=== PATIENT | male | born 1960 | race Caucasian/White ===

== ENCOUNTER 2017-02-13 06:54 | Inpatient (IN) | payer BC ==
[2017-02-10 17:28] VITALS: BMI 29.7
[~2017-02-13] VITALS: Ht 188 cm; Wt 106.6 kg
[2017-02-13] VITALS (29 sets, daily range): BP systolic 102–128; BP diastolic 47–90; PULSE 54–80; RESP 11–24; Ht 188 cm; Wt 106.6 kg
[~2017-02-13 06:54] MED LIST: BUPIVACAINE 0.5% (SDV) 30 ML, morphine SULFATE (PF) 8 MG, EPINEPHrine 0.3 MG, KETOROLAC... IRR SCH; CEFAZOLIN 2 GM/50 ML (PMX) 50 ML IVPB ONE; DEXAMETHASONE 1 MG TAB PO ONE; GABAPENTIN 300 MG CAP PO ONE; SOD CHLORIDE 0.9% 100 ML, TRANEXAMIC ACID 3,000 MG IRR ONE; TRANEXAMIC ACID 1,000 MG in SOD CHLORIDE 0.9% 100 ML IVPB ONE; traMADol 50 MG TAB PO ONE
--- NOTE | 2017-02-13 06:58 | HPN ---
Date/Time of Note Date/Time of Note DATE: 02/13/17 TIME: 06:57 Interval H&P Admission Note Pt. seen H&P reviewed: No system changes SARA MCGRATH MD Feb 13, 2017 06:58
[2017-02-13] MEDS ORDERED: FENTAnyl 50 MCG/ML VIAL ONE (08:01)
[2017-02-13] MEDS ORDERED: CEFAZOLIN 1 GM INJ ONE (08:01)
[2017-02-13] MEDS ORDERED: MIDAZOLAM 1 MG/ML 2 ML INJ ONE (08:01)
[2017-02-13] MEDS ORDERED: NEOSTIGMINE 3 MG/3 ML SYRINGE ONE (08:01)
[2017-02-13] MEDS ORDERED: ROCURONIUM 50 MG INJ ONE (08:01)
[2017-02-13] MEDS ORDERED: GLYCOPYRROLATE 0.4 MG INJ ONE (08:01)
[2017-02-13] MEDS ORDERED: DEXAMETHASONE 4 MG/ML 1 ML INJ ONE (08:02)
[2017-02-13] MEDS ORDERED: ETOMIDATE 20 MG INJ ONE (08:02)
[2017-02-13] MEDS ORDERED: PROPOFOL 100 ML ONE (08:02)
[2017-02-13] MEDS ORDERED: morphine SULFATE/PF (10 MG/10 ML) INJ ONE (08:02)
[2017-02-13] MEDS ORDERED: ONDANSETRON 4 MG INJ ONE (08:02)
[2017-02-13] MEDS ORDERED: POLYMYXIN/BACITRACIN 1L IRRIG ONE (09:14)
[2017-02-13] MEDS ORDERED: CA CHLORIDE 10% 10 ML SYRINGE ONE (09:54)
[2017-02-13] MEDS ORDERED: THROMBIN 5000 UNIT VIAL ONE (09:54)
[2017-02-13] MEDS ORDERED: SUGAMMADEX SODIUM 200 MG/2 ML VIAL IV ONE (11:43)
--- NOTE | 2017-02-13 11:54 | OPR ---
Date/Time of Note Date/Time of Note DATE: 02/13/17 TIME: 11:52 Operative Report Procedure Date: Feb 13, 2017 Preoperative Diagnosis Primary hip arthritis right Postoperative Diagnosis Right hip primary arthritis Operation/Procedure Performed Right total hip arthroplasty Surgeon see signature line Ditching Machine Operating Engineer Joey Henriquez MD Anesthesia Type: general Estimated Blood Loss: 150 - 200 ml's Transfusion none Specimen None Grafts/Implants none Complications none Pt Condition Post Procedure: stable Disposition: PACU Procedure Description OPTICAL MECHANIC APPRENTICE SURGEON: Joey Henriquez MD was asked to be present at my request as a result of the complexity associated with this procedure including positioning of the extremity, positioning of the instrumentation and protection of the neurovascular structures. In my opinion, the assistance offered by a surgical aide is insufficient and Dr. Henriquez should be compensated for his time. PROCEDURE IN DETAIL: Following the administration of general endotracheal anesthesia supplemented with a spinal anesthetic, the patient was placed in the supine position. The bilateral lower extremities were then prepped and draped in the usual sterile fashion. A surveillance camera technician radiograph was obtained for preliminary limb length and femoral size as well as acetabular size. A lateral incision was then made exposing the tensor fascia the fascia was incised the tensor was retracted laterally and the vessels were cauterized. The anterior capsule was then identified and prepared. A capsulectomy was then performed and the femoral head was then evaluated. Severe arthritic changes were noted. A femoral head cut was then made in the appropriate degree of version and inclination. The acetabulum was then exposed and a capsulectomy and labrectomy were completed. The central portion was then entered and serially reamed up to the 55 mm size. A Depuy [place] cup which is 56 mm in size with a standard liner was then fit into position with solid fixation. Two 30 mm screws were used for additional fixation. Attention was then directed to the femur, the femur was exposed and prepared. The canal was entered and serially reamed up to the size 6 stem. A size 6 Depuy stem was then inserted with solid fixation. A 36 mm, +5 mm femoral head , which was Oxinium was then inserted. The leg was taken through full range of motion with no evident instability. In addition, radiographs revealed excellent position with reproduction of the limb lengths within a millimeter. The wound was irrigated thoroughly. The wound was then closed in layers and a Prenio for the final cover. This was watertight. Estimated blood loss was procedure was 200 cc. Postoperative radiographs will be obtained in the recovery room. SARA MCGRATH MD Feb 13, 2017 11:54
--- NOTE | 2017-02-13 11:55 | PDOCDIS ---
Discharge Instructions DIAGNOSIS Discharge Diagnosis Primary hip arthritis CONDITION Patient Condition: Good HOME CARE INSTRUCTIONS: Diet Instructions: Regular ACTIVITY: Activity Restrictions: Slowly Increase Activity Keep Limb Elevated Bathing Restrictions: Shower FOLLOW UP/APPOINTMENTS Follow-up Plan 2 weeks in the office SCHOOL/WORK RELEASE May return to School/Work with: With Restrictions School/Work Release Comment: No hip extension for 6 weeks SARA MCGRATH MD Feb 13, 2017 11:55
[2017-02-13] MEDS ORDERED: hydrALAzine 20 MG INJ IV PRN ×2 (12:00)
[2017-02-13] MEDS ORDERED: ACETAMINOPHEN 500 MG TAB PO PRN (12:00)
[2017-02-13] MEDS ORDERED: morphine 4 MG/ML VIAL IV PRN ×2 (12:00)
[2017-02-13] MEDS ORDERED: LABETALOL HCL 20MG INJ IV PRN ×2 (12:00)
[2017-02-13] MEDS ORDERED: ONDANSETRON 4 MG INJ IV PRN ×4 (12:00)
[2017-02-13] MEDS ORDERED: OXYCODONE/ACETAMINOPHEN (5/325) TAB PO PRN ×6 (12:00)
[2017-02-13] MEDS ORDERED: morphine 2 MG INJ IV PRN ×2 (12:00)
[2017-02-13] MEDS ORDERED: DIPHENHYDRAMINE 50 MG INJ IV PRN ×4 (12:00)
[2017-02-13] MEDS ORDERED: TRANEXAMIC ACID 1,000 MG in SOD CHLORIDE 0.9% 100 ML IV ONE (12:00)
[2017-02-13] MEDS ORDERED: MIDAZOLAM 1 MG/ML 2 ML INJ IV PRN ×2 (12:00)
[2017-02-13] MEDS ORDERED: NALBUPHINE HCL (10 MG/1 ML) INJ IV PRN (12:00)
[2017-02-13] MEDS ORDERED: FENTAnyl 50 MCG/ML VIAL IV PRN ×6 (12:00)
[2017-02-13] MEDS ORDERED: ALBUTEROL 0.083% (NEB) 2.5 MG/3 ML AMP HHN PRN ×2 (12:00)
[2017-02-13] MEDS ORDERED: HYDROmorphONE (0.2 MG/ML) 10ML SYG IV PRN ×6 (12:00)
[2017-02-13] MEDS ORDERED: NALOXONE (0.4 MG/ML) INJ IV PRN (12:00)
[2017-02-13] MEDS ORDERED: MEPERIDINE 25 MG INJ IV PRN ×2 (12:00)
[2017-02-13] MEDS ORDERED: ZOLPIDEM 5 MG TAB PO PRN (12:00)
[2017-02-13] MEDS ORDERED: KETOROLAC 15 MG INJ IV PRN (12:00)
[2017-02-13] MEDS ORDERED: EPHEDrine SULFATE 50 MG/5 ML SYG IV PRN ×2 (12:00)
[2017-02-13] MEDS ORDERED: TRIMETHOBENZAMIDE 100 MG/ML VIAL IM PRN ×3 (12:00)
[2017-02-13] MEDS ORDERED: MAGNESIUM HYDROXIDE 30ML CUP PO PRN (12:00)
[2017-02-13] MEDS ORDERED: IPRATROPIUM (NEB) 0.5 MG/2.5 ML AMP HHN PRN ×2 (12:00)
--- NOTE | 2017-02-13 12:16 | RADRPT ---
PROCEDURE: Intraoperative fluoroscopy. CLINICAL INDICATION: Intraoperative fluoroscopy. COMPARISON: None relevant listed. TECHNIQUE: Intraoperative fluoroscopy of the pelvis was performed. Fluoroscopy time: 0.5 minutes # Series / Images: 3 FINDINGS: Intraoperative fluoroscopy was provided for surgical planning and support purposes. Expected changes related to right hip arthroplasty IMPRESSION: 1. Intraoperative fluoroscopy was provided for surgical planning and support purposes. 2. Expected changes related to right total hip arthroplasty. RPTAT: PP Physician Elizabeth Date Time Electronically viewed and signed by Physician Elizabeth on 02/13/2017 12:16 LG/
[2017-02-13 13:00] LABS: BASOPHILS % 0.2 % (0.0-2.0); EOSINOPHILS % 0.5 % (0.0-7.0); HEMATOCRIT 37.5 % (42.0-52.0); HEMOGLOBIN 12.5 g/dl (14.0-18.0); LYMPHOCYTES # 0.9 10^3/ul (0.8-2.9); LYMPHOCYTES % 15.3 % (15.0-51.0); MEAN CORPUSCULAR HEMOGLOBIN 30.9 pg (29.0-33.0); MEAN CORPUSCULAR HGB CONC 33.3 g/dl (32.0-37.0); MEAN CORPUSCULAR VOLUME 92.8 fl (82.0-101.0); MEAN PLATELET VOLUME 10.6 fl (7.4-10.4); MONOCYTE # 0.1 10^3/ul (0.3-0.9); MONOCYTES % 2.3 % (0.0-11.0); NEUTROPHIL # 4.8 10^3/ul (1.6-7.5); NEUTROPHILS % 80.5 % (39.0-77.0); PLATELET COUNT 191 10^3/UL (140-415); RED BLOOD COUNT 4.04 10^6/ul (4.70-6.10); RED CELL DISTRIBUTION WIDTH 12.1 % (11.5-14.5)
[2017-02-13] MEDS: CEFAZOLIN 1 GM/50 ML (PMX) 50 ML IVPB SCH ×2 (13:34→21:33)
[2017-02-13] MEDS: DEXAMETHASONE 2 MG TAB PO SCH ×2 (15:02→18:14)
[2017-02-13] MEDS: LACTATED RINGER'S 1,000 ML IV SCH ×2 (15:03→21:49)
--- NOTE | 2017-02-13 15:47 | RADRPT ---
PROCEDURE: AP pelvis CLINICAL INDICATION: Status post total hip replacement TECHNIQUE: One-view COMPARISON: None FINDINGS: Right hip prosthesis is noted in good position. No acute fracture dislocation seen. Sacroiliac joint s are open. [place] catheter is seen. IMPRESSION: Status post total right hip replacement RPTAT: AAOO Physician Fernanda Date Time Electronically viewed and signed by Chary Medina Physician on 02/13/2017 15:47 MB/
[2017-02-13] MEDS ORDERED: GABAPENTIN 300 MG CAP PO SCH (21:00)
[2017-02-13] MEDS: SENNA/DOCUSATE NA (8.6MG/50MG) TAB PO SCH (21:00)
[2017-02-14] MEDS: LACTATED RINGER'S 1,000 ML IV SCH (01:33)
[2017-02-14 05:15] LABS: BASOPHILS % 0.1 % (0.0-2.0); HEMATOCRIT 31.2 % (42.0-52.0); HEMOGLOBIN 10.6 g/dl (14.0-18.0); LYMPHOCYTES # 0.8 10^3/ul (0.8-2.9); LYMPHOCYTES % 5.4 % (15.0-51.0); MEAN CORPUSCULAR HEMOGLOBIN 31.3 pg (29.0-33.0); MEAN PLATELET VOLUME 11.1 fl (7.4-10.4); MONOCYTE # 0.8 10^3/ul (0.3-0.9); MONOCYTES % 5.4 % (0.0-11.0); NEUTROPHIL # 13.4 10^3/ul (1.6-7.5); NEUTROPHILS % 88.5 % (39.0-77.0); PLATELET COUNT 190 10^3/UL (140-415); RED BLOOD COUNT 3.39 10^6/ul (4.70-6.10); RED CELL DISTRIBUTION WIDTH 12.4 % (11.5-14.5); WHITE BLOOD COUNT 15.1 10^3/ul (4.8-10.8)
[2017-02-14] MEDS: CEFAZOLIN 1 GM/50 ML (PMX) 50 ML IVPB SCH (05:49)
[2017-02-14] MEDS: DEXAMETHASONE 2 MG TAB PO SCH ×2 (05:49)
--- NOTE | 2017-02-14 06:33 | DS ---
Date/Time of Note Date/Time of Note DATE: 02/14/17 TIME: 06:33 Discharge Summary Admission/Discharge Info Admit Date/Time Feb 13, 2017 at 06:54 Discharge Date/Time February 14, 2017 after clearance by physical therapy Discharge Diagnosis Primary hip arthritis Patient Condition: Good Hospital Course Patient was admitted and underwent an uncomplicated procedure postoperative day #1 he was afebrile wound was clean and dry discharged to be followed up in the office in 2 weeks Home Meds No Active Prescriptions or Reported Meds Follow-up Plan 2 weeks in the office Primary Care Provider Not On Staff Doctor Pending Labs Laboratory Tests Test 02/13/17 12:52 02/14/17 04:29 White Blood Count 6.010^3/ul (4.8-10.8) 15.110^3/ul (4.8-10.8) Red Blood Count 4.0410^6/ul (4.70-6.10) 3.3910^6/ul (4.70-6.10) Hemoglobin 12.5g/dl (14.0-18.0) 10.6g/dl (14.0-18.0) Hematocrit 37.5% (42.0-52.0) 31.2% (42.0-52.0) Mean Corpuscular Volume 92.8fl (82.0-101.0) 92.0fl (82.0-101.0) Mean Corpuscular Hemoglobin 30.9pg (29.0-33.0) 31.3pg (29.0-33.0) Mean Corpuscular Hemoglobin Concent 33.3g/dl (32.0-37.0) 34.0g/dl (32.0-37.0) Red Cell Distribution Width 12.1% (11.5-14.5) 12.4% (11.5-14.5) Platelet Count 65872^3/UL (140-415) 80654^3/UL (140-415) Mean Platelet Volume 10.6fl (7.4-10.4) 11.1fl (7.4-10.4) Neutrophils % 80.5% (39.0-77.0) 88.5% (39.0-77.0) Lymphocytes % 15.3% (15.0-51.0) 5.4% (15.0-51.0) Monocytes % 2.3% (0.0-11.0) 5.4% (0.0-11.0) Eosinophils % 0.5% (0.0-7.0) 0.0% (0.0-7.0) Basophils % 0.2% (0.0-2.0) 0.1% (0.0-2.0) Nucleated Red Blood Cells % 0.0/100WBC (0.0-0.0) 0.0/100WBC (0.0-0.0) Neutrophils # 4.810^3/ul (1.6-7.5) 13.410^3/ul (1.6-7.5) Lymphocytes # 0.910^3/ul (0.8-2.9) 0.810^3/ul (0.8-2.9) Monocytes # 0.110^3/ul (0.3-0.9) 0.810^3/ul (0.3-0.9) Eosinophils # 0.010^3/ul (0.0-0.5) 0.010^3/ul (0.0-0.5) Basophils # 0.010^3/ul (0.0-0.1) 0.010^3/ul (0.0-0.1) Nucleated Red Blood Cells # 0.010^3/ul (0.0-0.0) 0.010^3/ul (0.0-0.0) SARA MCGRATH MD Feb 14, 2017 06:33
--- NOTE | 2017-02-14 06:33 | PN ---
Date/Time of Note Date/Time of Note DATE: 02/14/17 TIME: 06:32 24 hour Interval Summary Patient is awake and alert with no complaints. Physical Exam Physical examination: He is neurologically intact. His wound is clean and dry with no signs of DVT. Vital Signs Date Time Temp Pulse Resp B/P Pulse Ox O2 Delivery O2 Flow Rate FiO2 02/13/17 23:46 98.2 68 18 103/51 96 02/13/17 15:20 Room Air 02/13/17 13:05 2.0 Intake and Output 02/13/17 02/13/17 02/14/17 14:59 22:59 06:59 Intake Total 110 ml 690 ml 1000 ml Output Total 300 ml 650 ml Balance -190 ml 40 ml 1000 ml VTE Prophylaxis VTE Prophylaxis Intervention: SCD's Lines/Catheters IV Catheter Type: Saline Lock [place] in Place: No Results Result Diagram: 02/14/17 0429 Results 24hrs Laboratory Tests Test 02/13/17 12:52 02/14/17 04:29 White Blood Count 6.0 15.1 #H Red Blood Count 4.04 L 3.39 L Hemoglobin 12.5 L 10.6 L Hematocrit 37.5 L 31.2 L Mean Corpuscular Volume 92.8 92.0 Mean Corpuscular Hemoglobin 30.9 31.3 Mean Corpuscular Hemoglobin Concent 33.3 34.0 Red Cell Distribution Width 12.1 12.4 Platelet Count 191 190 Mean Platelet Volume 10.6 H 11.1 H Neutrophils % 80.5 H 88.5 H Lymphocytes % 15.3 5.4 L Monocytes % 2.3 5.4 Eosinophils % 0.5 0.0 Basophils % 0.2 0.1 Nucleated Red Blood Cells % 0.0 0.0 Neutrophils # 4.8 13.4 H Lymphocytes # 0.9 0.8 Monocytes # 0.1 L 0.8 Eosinophils # 0.0 0.0 Basophils # 0.0 0.0 Nucleated Red Blood Cells # 0.0 0.0 Assessment/Plan Assessment/Plan Assessment: Status post total hip replacement Plan: We will begin physical therapy and be discharged following clearance by therapy this afternoon. Follow-up in the office in 2 weeks. Medications Medications Home Meds No Active Prescriptions or Reported Meds SARA MCGRATH MD Feb 14, 2017 06:33
[2017-02-14] MEDS: SENNA/DOCUSATE NA (8.6MG/50MG) TAB PO SCH (08:26)
[2017-02-14 08:30] VITALS: BP 127/62; RESP 18
[2017-02-14] MEDS ORDERED: ASPIRIN 81 MG TAB PO SCH (09:00)
== END 2017-02-14 12:45 | disposition home or self-care (01) | DRG 470 ==
LOC: REC 06:54 → EDSTATUS 07:15 → MS1 14:05
PROVIDERS: ADMIT Orthopaedic Surgery; ATTEND Orthopaedic Surgery
PROC: 0SR904A Replacement of Right Hip Joint with Ceramic on Polyethylene Synthetic Substitute, Uncemented, Open Approach (ICD-10-PCS; principal; 2017-02-13 10:00)
DX: M13.851 Other specified arthritis, right hip (principal); Z87.891 Personal history of nicotine dependence
CPT/HCPCS: 72170; 73530; 85025; 86999; 87086; 97116; 97163; 97530; C1713; C1776; J0171; J0690; J0735; J1100; J1885; J2250; J2274; J2405; J2710; J3010; J3370; J7120